=== PATIENT | female | born 1965 | race Caucasian/White ===

== ENCOUNTER 2019-01-05 20:30 | Inpatient (IN) | payer OTHER ==
[~2019-01-05] VITALS: Ht 172.7 cm; Wt 85.2 kg
[2019-01-05 20:57] LABS: BASO # 0.1 10^3/uL (0.0-0.2); BASO % 0.8 % (0.0-1.0); EOS # 0.4 10^3/uL (0.0-0.50); EOS % 4.8 % (0.0-3.0); HEMOGLOBIN 14.3 g/dl (12.0-15.5); LYMPH # 2.2 10^3/uL (1.5-4.5); LYMPH % 29.7 % (24.0-44.0); MEAN CORPUSCULAR HEMOGLOBIN 32.1 pg (27.0-33.0); MEAN CORPUSCULAR HGB CONC 33.3 g/dl (32.0-36.5); MEAN CORPUSCULAR VOLUME 96.4 fl (80.0-96.0); MONO # 0.6 10^3/uL (0.0-0.8); MONO % 8.6 % (0.0-5.0); NEUTROPHILS # 4.2 10^3/uL (1.8-7.7); NEUTROPHILS % 55.8 % (36.0-66.0); PLATELET COUNT, AUTOMATED 235 10^3/uL (150-450); RED BLOOD COUNT 4.46 10^6/uL (4.00-5.40); WHITE BLOOD COUNT 7.5 10^3/uL (4.0-10.0)
[2019-01-05] MEDS ORDERED: ATOR1TAB19 PO (21:08)
[2019-01-05] MEDS ORDERED: SYNT112T2 PO (21:08)
[2019-01-05] MEDS ORDERED: DIAZ5TAB PO (21:08)
[2019-01-05] MEDS ORDERED: METO25TA4 PO (21:08)
[2019-01-05] MEDS ORDERED: LISI-542 PO (21:08)
[2019-01-05] MEDS ORDERED: CARB25TA9 PO (21:08)
[2019-01-05] MEDS ORDERED: DIAZ2TAB PO (21:08)
[2019-01-05] MEDS ORDERED: BUPR150T3 PO (21:08)
[2019-01-05] MEDS ORDERED: D-101000 PO (21:09)
[2019-01-05] MEDS ORDERED: D31000CA4 PO (21:09)
[2019-01-05] MEDS ORDERED: EQL50TAB4 PO (21:09)
[2019-01-05] MEDS ORDERED: CHARCOAL ACTIVATED LIQUID 25 GM/120 ML BTL PO ONE (21:15)
[2019-01-05 21:30] LABS: ACETAMINOPHEN LEVEL < 2.0 UG/ML (10.0-30.0); ALBUMIN 4.2 GM/DL (3.2-5.2); ALT/SGPT 12 U/L (12-78); BILIRUBIN,DIRECT < 0.1 MG/DL (0.0-0.2); BILIRUBIN,TOTAL 0.3 MG/DL (0.2-1.0); BLOOD UREA NITROGEN 10 MG/DL (7-18); CARBON DIOXIDE LEVEL 28 MEQ/L (21-32); CHLORIDE LEVEL 103 MEQ/L (98-107); CPK CREATINE PHOSPHOKINASE 340 U/L (26-192); CREATININE FOR GFR 0.98 MG/DL (0.55-1.30); ETHYL ALCOHOL (ETHANOL) 0.039 % (0.000-0.010); GLOMERULAR FILTRATION RATE > 60.0 (>51); GLUCOSE, FASTING 322 MG/DL (70-100); POTASSIUM SERUM 4.1 MEQ/L (3.5-5.1); SALICYLATE LEVEL < 1.7 MG/DL (5.0-30.0); SODIUM LEVEL 140 MEQ/L (136-145); THYROID STIMULATING HORMONE 0.433 uIU/ML (0.358-3.740); TOTAL PROTEIN 7.4 GM/DL (6.4-8.2)
[2019-01-05 22:58] LABS: AMPHETAMINES LEVEL URINE NEGATIVE (NEGATIVE); BARBITURATES URINE NEGATIVE (NEGATIVE); BENZODIAZEPINES URINE POSITIVE (NEGATIVE); CANNABINOIDS URINE NEGATIVE (NEGATIVE); COCAINE METABOLITE URINE NEGATIVE (NEGATIVE); METHADONE URINE NEGATIVE (NEGATIVE); OPIATES URINE NEGATIVE (NEGATIVE); PHENCYCLIDINE URINE NEGATIVE (NEGATIVE)
[2019-01-06] MEDS ORDERED: HumaLOG INSULIN (NovoLOG) PER UNIT SC STA (02:03)
[2019-01-06] MEDS ORDERED: NICOTINE 21MG/24HR 1 EA TRANSDERMAL TD SCH (09:00)
[2019-01-06] MEDS ORDERED: METOPROLOL TART 50 MG TAB PO ONE (10:30)
[2019-01-06] MEDS ORDERED: LISINOPRIL 5 MG TAB PO ONE (10:30)
[2019-01-06] MEDS ORDERED: buPROPion **XL** TABLET 150MG (WELLBUTRIN XL) PO ONE (10:30)
[2019-01-06] MEDS ORDERED: LEVOTHYROXINE 112MCG TABLET (0.112MG) PO ONE (10:30)
[2019-01-06] MEDS ORDERED: NS 1,000 ML IV ONE (10:45)
[2019-01-06] MEDS ORDERED: METOPROLOL TART 25 MG TABLET PO ONE (11:00)
[2019-01-06] MEDS ORDERED: BASA100I SC (11:16)
[2019-01-06] MEDS ORDERED: LEVEMIR (INSULIN DETEMIR) 1 UNITS/0.01ML SC ONE (11:45)
[2019-01-06] MEDS: VITAMIN D 1,000 INTERNATIONAL UNITS TABLET PO SCH ×2 (12:06→12:07)
[2019-01-06] MEDS ORDERED: ACET500T15 PO (12:17)
[2019-01-06] MEDS ORDERED: ADME100I SC (12:17)
[2019-01-06] MEDS ORDERED: ACETAMINOPHEN TAB 650MG DOSE (2X325MG) PO PRN (13:30)
[2019-01-06] MEDS ORDERED: MAALOX 30 ML SUSP *UDC PO PRN (13:30)
[2019-01-06] MEDS ORDERED: MOM 30ML SUSPENSION UDC PO PRN (13:30)
--- NOTE | 2019-01-06 17:00 | ECGEPIP ---
Stationary ECG Study [facility] - ED Test Date: 2019-01-05 Pat Name: JHON FRENCH Department: Room: - Gender: F Quality Process Engineer: KHRIS : 1965 Requested By: MARIANO GRAY Order Number: [id number] Reading MD: Berto Fishman Measurements Intervals [place] Rate: 98 P: 48 VT: 144 QRS: 12 QRSD: 92 T: 50 QT: 368 QTc: 471 Interpretive Statements SINUS RHYTHM PROBABLE INFERIOR MYOCARDIAL INFARCTION, PROBABLY OLD NONSPECIFIC ST T WAVE CHANGES DELAYED R WAVE PROGRESSION NO OLD ECG FOR COMPARISON Electronically Signed On 01-06-2019 17:00:03 EDT by Berto Fishman
[2019-01-06] MEDS ORDERED: DEXTROSE 50% 50 ML SYRINGE IV PRN (17:45)
[2019-01-06] MEDS ORDERED: diazePAM 10 MG TAB PO PRN (17:45)
[2019-01-06] MEDS ORDERED: GLUCOSE 4 GM CHEW TABLET PO PRN (17:45)
[2019-01-06] MEDS ORDERED: GLUCAGON FOR INJ 1 MG VIAL (J1610) SC PRN (17:45)
[2019-01-06] MEDS ORDERED: PILL CRUSHER/CUTTER 1 EACH XX PRN (18:00)
[2019-01-06] MEDS: HumaLOG INSULIN (NovoLOG) PER UNIT SC SCH (18:08)
--- NOTE | 2019-01-06 19:39 | ECGEPIP ---
Stationary ECG Study [facility] - ED Test Date: 2019-01-06 Pat Name: JHON FRENCH Department: Room: - Gender: F Corporate Claims Examiner: william : 1965 Requested By: Berto Fishman Order Number: [id number] Reading MD: Berto Fishman Measurements Intervals [place] Rate: 120 P: 64 [place]: 156 QRS: 14 QRSD: 86 T: 53 QT: 317 QTc: 449 Interpretive Statements SINUS TACHYCARDIA POSSIBLE INFERIOR MYOCARDIAL INFARCTION, PROBABLY OLD ABNORMAL RHYTHM ECG DELAYED R WAVE PROGRESSION CW 01/05/[address] T WAVE CHANGES Electronically Signed On 01-06-2019 19:39:10 EDT by Berto Fishman
[2019-01-06] MEDS: traZODone 50 MG TAB PO PRN (20:38)
[2019-01-07] MEDS: HumaLOG INSULIN (NovoLOG) PER UNIT SC SCH ×3 (06:42→17:31)
[2019-01-07 09:15] VITALS: BP 112/60
[2019-01-07] MEDS ORDERED: hydrOXYzine 25 MG TAB PO PRN (12:15)
--- NOTE | 2019-01-07 12:23 | MHHPEPDOC ---
General Date Of Admission: Jan 07, 2019 Legal Status: 9.39 Chief Complaint "I am a basket case at night" History of Present Illness HISTORY OF THE PRESENT ILLNESS: Patient is a 53 -year-old , female, who presents after making suicidal statement of not wanting to wake up and taking 10 mg diazepam with alcohol per ED report. Reports daughter called EMS and was brought to the hospital. BAL was 0.039 on admission. She was stabilized in the ED. Says she took "Zzzquil", a beer and 2 mg diazepam 2 evenings ago because she could not sleep. She denies taking more than 2 tablets of diazepam that night and did not have any recent suicidal thoughts, including on this admission. She reports she drinks a couple beers a night. She reports several surgeries with lengthy hospital stays. 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 Says she felt immobilized in bed and at one point spilled water on herself from the francis brought to her and that she spent hours in bed wet and unable to reach the call button. Endorses that she recently has had arguments with her of 31 years, since she wakes up in the middle of the night at 4 am because while in the hospital would wake up at this time and he would not be by her side. Says when she wakes up she does not have anxiety or nightmares associated. Reports being in hospitals triggers her and makes her "a bit anxious" and "mad". Says she suppressed intrusive memories and does not have significant alterations in her mood. Reports some anger issues due to feeling helpless at times, but is not usually depressed, hopeless. Denies suicidal or homicidal ideations. Denies AVH/michelle. Denies side effects of current medications. Told her wellbutrin XL 150 mg Po daily may make her agitated/angry and that propranolol can replace metoprolol to help with impulsivity considering her past surgery, but she says she wants to remain on metoprolol since she has history of tachycardia unrelated to anxiety spells and wants to stay on current regime. Sees a therapist 2x weekly, see past psychiatric history. She does not wish for us to call her daughter at this time, but states she may be agreeable later. Psychiatric Review of Systems Depression (2 or more weeks): denies Michelle (4 or more days of): denies Psychosis: denies PTSD: history of trauma (several inpatient admissions for brain surgery.), nightmares and flashbacks (says smells and sights of the hospital remind her of being in the hospital, says makes her mad.), avoidance of triggers (avoids hospitals, makes her feels anxious to hear "beeping sounds of machines") Anxiety: gen/non-specific anxiety, stressor related anxiety Anxiety/ 6 months or more of: difficulty concentrating Past Psychiatric History Previous Psychiatric Diagnosis: Reports PTSD dx by clinical psychologist "Margo Weber", Previous Psychiatric Admissions: [facility] in [place] for 3 days, 25 years ago she reports inpatient admission Suicide Attempts: Denies Psychiatric Follow-up: Saw clinical psychologist, "Margo Weber, [facility] for 4-6 weeks after last surgery", Sees "Alee Baptiste" counselor in [place] 2x weekly Psychiatric medications: paroxetine (for greater than 1 year, says sexual side effects), Wellbutrin XL 150 PO daily (has been on for a year, never missed a dose) Past Medical History Medical Problems epidermoid cyst removal 10 years ago, repeat surgery [address], had 3 surgeries (spend weeks each time in the hospital), hypothyroidism, hyperlipidemia, DM1 adult onset, vitiligo Head Injury: Yes Seizures: No (Denies she is on any medications related to her surgery.) Hospitalizations: Yes Surgeries: Yes (see above) Family Medical/Psychiatric HX Medical Problems Father, kidney "tumor" and "heart disease". Mother in 2001 of MA reportedly, thyroid disease. Both maternal and paternal grandparents thyroid dysfunction. Psychiatric Disorders: No Addiction: No Suicide Attemps/Completions: No Addiction History nicotine (Quit in 2006), alcohol (Reports at least 1-4 beers a day.) Social History Childhood: "I had a great childhood". Parents remained until she was 29 years old. Grew up in [place], [place]. Abuse/Trauma: Reports long hospital stays, waking up at night without there. Denies any clear trauma or abuse. Current Living Situation: Lives with of 31 years in [place], [place] in a house. Education: highschool. Employment: Currently unemployed. 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 Social Support: No benefits, unemployed since 2000 Legal: Denies Marital: Mental Status Examination General Appearance: well groomed, appears stated age, hospital scubs/clothing Build: overweight Demeanor: average Eye Contact: average Activity: average Behavior: cooperative Speech: clear, normal volume, reg/rate,rhythm,volume Mood: euthymic Mood "good I guess" Affect: full (Does smile, ), appropriate, congruent Thought Process: circumstantial Thought Content (Delusions): none reported Thought Content (Other): preoccupied (On leaving, does not like hospitals.) Thought Content (Aggressive): none reported Perception (Hallucinations): none reported Perception (Other): none reported Cognition (Impairment of): memory (Says long-term memory poor) Cognition(Intelligence Est.): average Oriented: Awake, Alert, Oriented times three Insight: good Judgment: Good Psychosis: Denies Diagnoses 1. Unspecified trauma and stressor-related disorder R/O PTSD, MDD, PRISCILLA Assessment Patient is a 53 year old female with reported past psychiatric history of PTSD who comes into [facility] ED after daughter called EMS due to possible overdose of diazepam with benadryl and alcohol (BAL 0.039) and suicidal ideation. Patient adamant she has never been suicidal and no recent inpatient admissions. No past suicide attempts reported. Says she is stable on her home medications including wellbutrin xl 150 mg PO and wants to start PRN trazodone 50 mg PO QHS for sleep, hydroxyzine 25 mg PO Q4H for anxiety, and wants to continue on the medications. She was also started on medications for her DM 1 adult onset, hypothyroidism, HTN, carbido/levadopa, statin for HLD. Currently denies SI/HI/AVH/michelle/acute PTSD symptoms. Daughter should be contacted for collateral when patient amenable. Also keep on PRN diazepam for CIWA above 13 for potential withdrawals. Problem List Problems: (1) Anxiety associated with depression Initial Treatment Plan 1. Patient was admitted on a [9.39] status. 2. Complete history was obtained. 3. With patients permission, family will be contacted and database will be expanded. 4. Patients medication regimen will be reviewed and changed accordingly. 5. Patient will be provided with protected environment. 6. Patient will be treated with individual, group, and milieu therapies. 7. Patient will receive supportive psych-education. 8. Discharge planning will commence immediately. 9. Outpatient follow-up treatment will be strongly recommended. 10. The initial treatment plan will focus initially on: * Depression, anxiety, possible PTSD, CIWA for withdrawals * Risk for suicide. * Substance abuse. ESTIMATED LENGTH OF STAY: 5-7 DAYS. TIME SPENT COUNSELING AND COORDINATING INITIAL CARE: 60 minutes. Vital Signs Vital Signs Date Time Temp Pulse Resp B/P (MAP) Pulse Ox O2 Delivery O2 Flow Rate FiO2 01/07/19 09:15 80 112/60 (77) 01/06/19 17:11 97.2 17 99 01/06/19 11:50 Room Air 01/06/19 01:45 2.0 Laboratory Data 24H Labs Laboratory Tests 2 01/06/19 18:01: Bedside Glucose (Misc Panel) 321H Medications Scheduled (Basaglar Kwikpen) 100 Unit/Ml Inj, 30 UNIT SC DAILY, (Reported) (Admelog) 100 Unit/Ml Inj, 1 DOSE SC AC, (Reported) PER SLIDING SCALE Atorvastatin Calcium (Atorvastatin Calcium) 10 Mg Tab, 10 MG PO QHS, (Reported) Bupropion Hcl (Bupropion HCl Xl) 150 Mg Tab, 150 MG PO DAILY, (Reported) Carbidopa/Levodopa (Carbidopa/Levodopa 25-100 mg) 1 Tab Tab, 2 TAB PO QHS, (Reported) Cholecalciferol (D3) 1,000 Unit Cap, 1,000 UNITS PO DAILY, (Reported) Levothyroxine Sodium (Synthroid) 112 Mcg Tab, 112 MCG PO DAILY, (Reported) Lisinopril (Lisinopril) 5 Mg Tab, 5 MG PO DAILY, (Reported) Metoprolol Tartrate (Metoprolol Tartrate) 25 Mg Tab, 25 MG PO BID, (Reported) Zinc (Eql Natural Zinc) 50 Mg Tab, 50 MG PO DAILY, (Reported) Scheduled PRN Acetaminophen (Acetaminophen) 500 Mg Tab, 500 MG PO Q6H PRN for PAIN, (Reported) Diazepam (Diazepam) 5 Mg Tab, 5 MG PO QHS PRN for ANXIETY, (Reported) Allergies Coded Allergies: No Known Allergies (Unverified , 01/05/19) MARISA JACOBS PGY-1 Jan 07, 2019 11:48
[2019-01-07] MEDS ORDERED: diazePAM 10 MG TAB PO PRN (12:30)
[2019-01-07] MEDS: FOLIC ACID 1 MG TAB PO SCH (14:03)
[2019-01-07] MEDS: THIAMINE 100 MG TAB PO SCH (14:04)
[2019-01-07] MEDS: LISINOPRIL 5 MG TAB PO SCH (14:05)
[2019-01-07] MEDS: VITAMIN D 1,000 INTERNATIONAL UNITS TABLET PO SCH (14:05)
[2019-01-07] MEDS: METOPROLOL TART 25 MG TABLET PO SCH ×2 (14:05→20:12)
[2019-01-07] MEDS: buPROPion **XL** TABLET 150MG (WELLBUTRIN XL) PO SCH (14:05)
[2019-01-07] MEDS ORDERED: LORazepam 2 MG TAB PO PRN (15:30)
[2019-01-07] MEDS: MULTIVITAMINS/MINERALS THERAP 1 TAB PO SCH (16:05)
[2019-01-07] MEDS: LEVOTHYROXINE 112MCG TABLET (0.112MG) PO SCH (16:05)
[2019-01-07 16:17] VITALS: BP 123/73
[2019-01-07 18:39] VITALS: BP 123/73
[2019-01-07] MEDS: traZODone 50 MG TAB PO PRN (20:11)
[2019-01-07] MEDS: ATORVASTATIN 10 MG TAB PO SCH (20:12)
[2019-01-07] MEDS: SINEMET 25-100 MG TAB PO SCH (20:12)
[2019-01-07] MEDS ORDERED: traZODone 50 MG TAB PO SCH (21:00)
[2019-01-07] MEDS ORDERED: THIAMINE 100 MG TAB PO SCH (21:00)
[2019-01-07 23:30] VITALS: BP 134/86
[2019-01-08 06:32] VITALS: BP 133/63
[2019-01-08] MEDS: LEVOTHYROXINE 112MCG TABLET (0.112MG) PO SCH (06:32)
[2019-01-08] MEDS: HumaLOG INSULIN (NovoLOG) PER UNIT SC SCH ×4 (06:45→20:25)
[2019-01-08 07:44] LABS: CPK CREATINE PHOSPHOKINASE 190 U/L (26-192); MB/CK RELATIVE INDEX 1.74 (< OR =4); TROPONIN I < 0.02 NG/ML (< 0.10)
[2019-01-08] MEDS: THIAMINE 100 MG TAB PO SCH (08:52)
[2019-01-08] MEDS: LISINOPRIL 5 MG TAB PO SCH (08:52)
[2019-01-08] MEDS: VITAMIN D 1,000 INTERNATIONAL UNITS TABLET PO SCH (08:52)
[2019-01-08] MEDS: LEVEMIR (INSULIN DETEMIR) 1 UNITS/0.01ML SC SCH (08:52)
[2019-01-08] MEDS: FOLIC ACID 1 MG TAB PO SCH (08:52)
[2019-01-08] MEDS: buPROPion **XL** TABLET 150MG (WELLBUTRIN XL) PO SCH (08:52)
[2019-01-08] MEDS: METOPROLOL TART 25 MG TABLET PO SCH ×2 (08:53→20:06)
[2019-01-08] MEDS: MULTIVITAMINS/MINERALS THERAP 1 TAB PO SCH (08:53)
[2019-01-08] MEDS ORDERED: FOLIC ACID 1 MG TAB PO SCH (09:00)
--- NOTE | 2019-01-08 10:52 | MHIPNPDOC ---
[facility] Progress Note Progress Note DATE OF SERVICE: 01/08/19 HISTORY: See HPI. Interval History: Patient seen eating in the common social room. Denies any concerning physical symptoms, including but not limited to high anxiety, diaphoresis, shakiness, N,V,H, neurological symptoms, chest pain. Says she wants to leave tomorrow, explained we are the weekend coverage team. She is smiling and laughs at points during our conversation, reports mood is "anxious to leave". Says she looks forward to upcoming trips with . has been attending groups. Reports normal appetite and adequate sleep. VITAL SIGNS: See below. NEW TEST RESULTS: see below, ekg read showed inferior infarct, "probably old", ordered cardiac enzymes. CURRENT MEDICATIONS: See below. MENTAL STATUS EXAMINATION: General Appearance: well groomed, appears stated age, hospital scrubs/clothing Build: overweight Demeanor: average Eye Contact: average Activity: average Behavior: cooperative, pleasant Speech: clear, normal volume, reg/rate,rhythm,volume Mood "anxious to leave" Affect: elevated, full range,(Does smile), appropriate, congruent Thought Process: linear, logical Thought Content (Delusions): none reported Thought Content (Other): preoccupied (On leaving, does not like hospitals.) Thought Content (Aggressive): none reported Perception (Hallucinations): none reported Perception (Other): none reported Cognition (Impairment of): memory (Says long-term memory poor) Cognition(Intelligence Est.): average Oriented: Awake, Alert, Oriented times three Insight: good Judgment: Good Psychosis: Denies DIAGNOSES: 1. Unspecified trauma and stressor-related disorder R/O PTSD, MDD, PRISCILLA ASSESSMENT: Patient is euthymic to elevated mood, tolerates home medications without side effects. Patient feels safe to leave, and asks if she can go Wednesday, told her we are the weekend coverage. MANAGEMENT PLAN: Educated regarding alcohol and diazepam use risk, especially when combining sedatives risk for respiratory depression and . Continued on medications, denies side effects. EKG read shows "probably old infarct" so ordered cardiac enzymes which should be followed up. TIME SPENT: 10 minutes. Vital Signs Vital Signs Date Time Temp Pulse Resp B/P (MAP) Pulse Ox O2 Delivery O2 Flow Rate FiO2 01/08/19 08:53 63 133/63 01/08/19 06:32 98.3 12 01/06/19 17:11 99 01/06/19 11:50 Room Air 01/06/19 01:45 2.0 Laboratory Data 24H Labs Laboratory Tests 2 01/07/19 12:12: Bedside Glucose (Misc Panel) 276H 01/07/19 17:29: Bedside Glucose (Misc Panel) 250H 01/07/19 20:05: Bedside Glucose (Misc Panel) 353H 01/08/19 06:39: Bedside Glucose (Misc Panel) 263H 01/08/19 06:58: Total Creatine Kinase 190, Creatine Kinase MB 3.0, Creatine Kinase MB Relative Index 1.74, Troponin I < 0.02 Current Medications Current Medications Acetaminophen (Tylenol Tab) 650 mg Q6HP PRN PO HEADACHE or DISCOMFORT; Start 01/06/19 at 13:30 Al Hydrox/Mg Hydrox/Simethicone (Mylanta) 30 ml Q4HP PRN PO HEARTBURN/INDIGESTION; Start 01/06/19 at 13:30 Atorvastatin Calcium (Lipitor) 10 mg QHS PO Last administered on 01/07/19at 20:12; Start 01/07/19 at 21:00 Bupropion HCl (Wellbutrin Xl) 150 mg DAILY PO Last administered on 01/08/19at 08:52; Start 01/07/19 at 13:00 Carbidopa/Levodopa (Sinemet 25/100) 2 tab QHS PO Last administered on 01/07/19at 20:12; Start 01/07/19 at 21:00 Dextrose (Dextrose 50%) 25 ml ASDIRECTED PRN IV SEE LABEL COMMENTS; Start 01/06/19 at 17:45; Stop 01/07/19 at 12:19; Status DC Diazepam (Valium) 5 mg QHSP PRN PO ANXIETY; Start 01/06/19 at 17:45; Stop 01/07/19 at 12:19; Status DC Diazepam (Valium) 5 mg QIDP PRN PO ANXIETY; Start 01/07/19 at 12:30; Stop 01/09/19 at 17:45; Status Cancel Folic Acid (Folic Acid) 1 mg DAILY PO Last administered on 01/08/19at 08:52; Start 01/07/19 at 09:00 Folic Acid (Folic Acid) 1 mg DAILY PO ; Start 01/08/19 at 09:00; Stop 01/08/19 at 09:00; Status DC Glucagon (Glucagon) 1 mg ASDIRECTED PRN SC SEE LABEL COMMENTS; Start 01/06/19 at 17:45 Glucose (Glucose) 16 GM ASDIRECTED PRN PO SEE LABEL COMMENTS; Start 01/06/19 at 17:45 Home Med (Med Rec Complete!) ASDIRECTED XX ; Start 01/06/19 at 12:30; Stop 01/06/19 at 12:30; Status DC Hydroxyzine HCl (Atarax) 25 mg Q6HP PRN PO ANXIETY; Start 01/07/19 at 12:15 Insulin Detemir (Levemir Insulin) 30 units DAILY SC Last administered on 01/08/19at 08:52; Start 01/08/19 at 09:00 Insulin Human Lispro (HumaLOG INSULIN) 8 units STAT STAT SC Last administered on 01/06/19at 02:15; Start 01/06/19 at 02:03; Stop 01/06/19 at 02:06; Status DC Insulin Human Lispro (HumaLOG INSULIN) See Protocol Table AC SC Last administered on 01/08/19at 06:45; Start 01/06/19 at 17:30 Levothyroxine Sodium (Synthroid) 112 mcg DAILY@06 PO Last administered on 01/08/19at 06:32; Start 01/07/19 at 13:00 Lisinopril (Prinivil) 5 mg DAILY PO Last administered on 01/08/19at 08:52; Start 01/07/19 at 13:00 Lorazepam (Ativan) 2 mg ASDIRECTED PRN PO SEE PROTOCOL; Start 01/07/19 at 15:30 Magnesium Hydroxide (Milk Of Magnesia) 30 ml DAILYPRN PRN PO CONSTIPATION; Start 01/06/19 at 13:30 Metoprolol Tartrate (Lopressor) 25 mg BID PO Last administered on 01/08/19at 08:53; Start 01/07/19 at 13:00 Multivitamins (Theragram-M) 1 tab DAILY PO Last administered on 01/08/19at 08:53; Start 01/07/19 at 09:00 Nicotine (Nicoderm Cq 21mg) 1 patch DAILY TD ; Start 01/06/19 at 09:00; Stop 01/06/19 at 17:44; Status DC Thiamine HCl (Thiamine HCl) 100 mg BID PO ; Start 01/07/19 at 21:00; Stop 01/07/19 at 21:00; Status DC Thiamine HCl (Thiamine HCl) 100 mg DAILY PO Last administered on 01/08/19at 08:52; Start 01/07/19 at 09:00 Trazodone HCl (Desyrel) 50 mg QHS PO ; Start 01/07/19 at 21:00; Stop 01/07/19 at 21:00; Status DC Trazodone HCl (Desyrel) 50 mg QHSP PRN PO INSOMNIA Last administered on 01/07/19at 20:11; Start 01/06/19 at 13:30 Vitamin D (Vitamin D) 1,000 units DAILY PO Last administered on 01/06/19at 12:07; Start 01/06/19 at 09:00; Stop 01/06/19 at 17:29; Status DC Vitamin D (Vitamin D) 1,000 units DAILY@0800 PO Last administered on 01/08/19at 08:52; Start 01/07/19 at 13:00 Allergies Coded Allergies: No Known Allergies (Unverified , 01/05/19) MARISA JACOBS PGY-1 Jan 08, 2019 10:31
[2019-01-08 12:00] LABS: CPK CREATINE PHOSPHOKINASE 206 U/L (26-192); TROPONIN I < 0.02 NG/ML (< 0.10)
[2019-01-08 18:29] VITALS: BP 146/66
[2019-01-08] MEDS: SINEMET 25-100 MG TAB PO SCH (20:06)
[2019-01-08] MEDS: ATORVASTATIN 10 MG TAB PO SCH (20:06)
[2019-01-08 20:30] VITALS: BP 146/86
[2019-01-08] MEDS ORDERED: HumaLOG INSULIN (NovoLOG) PER UNIT SC SCH (21:00)
[2019-01-09] MEDS: LEVOTHYROXINE 112MCG TABLET (0.112MG) PO SCH (05:59)
[2019-01-09] MEDS: HumaLOG INSULIN (NovoLOG) PER UNIT SC SCH ×4 (06:31→20:12)
[2019-01-09 06:44] VITALS: BP 164/88
[2019-01-09] MEDS: buPROPion **XL** TABLET 150MG (WELLBUTRIN XL) PO SCH (08:09)
[2019-01-09] MEDS: LEVEMIR (INSULIN DETEMIR) 1 UNITS/0.01ML SC SCH (08:09)
[2019-01-09] MEDS: VITAMIN D 1,000 INTERNATIONAL UNITS TABLET PO SCH (08:09)
[2019-01-09] MEDS: THIAMINE 100 MG TAB PO SCH (08:10)
[2019-01-09] MEDS: METOPROLOL TART 25 MG TABLET PO SCH ×2 (08:10→20:10)
[2019-01-09] MEDS: MULTIVITAMINS/MINERALS THERAP 1 TAB PO SCH (08:10)
[2019-01-09] MEDS: LISINOPRIL 5 MG TAB PO SCH (08:10)
[2019-01-09] MEDS: FOLIC ACID 1 MG TAB PO SCH (08:10)
--- NOTE | 2019-01-09 11:44 | MHIPNPDOC ---
[facility] Progress Note Progress Note DATE OF SERVICE: 01/09/19 HISTORY: Patient is a 53 -year-old , female, who presents after making suicidal statement of not wanting to wake up and taking 10 mg diazepam with alc ohol per ED report. Reports daughter called EMS and was brought to the hospital. BAL was 0.039 on admission. She was stabilized in the ED. Says she took "Zzzquil", a beer and 2 mg diazepam 2 evenings ago because she could not sleep. She denies taking more than 2 tablets of diazepam that night and did not have any recent suicidal thoughts, including on this admission. She reports she drinks a couple beers a night. She reports several surgeries with lengthy hospital stays. 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 Says she felt immobilized in bed and at one point spilled water on herself from the francis brought to her and that she spent hours in bed wet and unable to reach the call button. Endorses that she recently has had arguments with her of 31 years, since she wakes up in the middle of the night at 4 am because while in the hospital would wake up at this time and he would not be by her side. Says when she wakes up she does not have anxiety or nightmares associated. Reports being in hospitals triggers her and makes her "a bit anxious" and "mad". Says she suppressed intrusive memories and does not have significant alterations in her mood. Reports some anger issues due to feeling helpless at times, but is not usually depressed, hopeless. Denies suicidal or homicidal ideations. Denies AVH/michelle. Denies side effects of current medications. Told her wellbutrin XL 150 mg Po daily may make her agitated/angry and that propranolol can replace metoprolol to help with impulsivity considering her past surgery, but she says she wants to remain on metoprolol since she has history of tachycardia unrelated to anxiety spells and wants to stay on current regime. Sees a therapist 2x weekly, see past psychiatric history. She does not wish for us to call her daughter at this time, but states she may be agreeable later. VITAL SIGNS: See below. NEW TEST RESULTS: see below CURRENT MEDICATIONS: See below. MENTAL STATUS EXAMINATION: General Appearance: well groomed, appears stated age, own clothing Build: overweight Demeanor: average Eye Contact: average Activity: average, slightly anxious Behavior: cooperative, pleasant Speech: clear, normal volume, reg/rate,rhythm,volume Mood "ok" Affect: elevated, full range,(Does smile), appropriate, congruent Thought Process: linear, logical Thought Content (Delusions): none reported Thought Content (Other): non reported Thought Content (Aggressive): none reported Perception (Hallucinations): none reported Perception (Other): none reported Cognition (Impairment of): memory (Says long-term memory poor) Cognition(Intelligence Est.): average Oriented: Awake, Alert, Oriented times three Insight: good Judgment: Good Psychosis: Denies DIAGNOSES: Unspecified trauma and stressor-related disorder R/O PTSD, MDD, PRISCILLA ASSESSMENT:Pt seen and states that her mood is better and regrets her "mistake" of taking Zzzquil then Valium when Zzzquil didn't work to aid her to sleep. Provided education to pt to never mix or take more of sedating medication as can be very life threatening. Pt states she didn't know and plans to never do again. States she doesn't take valium but had an old prescription so decided to take it, denies it was a SA. States prior to admission things had been going well at home and was looking forward to go on vacation to [employer] in [place]. States is very supportive. States she's being social on the milieu which is beneficial. States she slept well last night with trazodone. Feels she is tolerating her medications and they're beneficial. She is attending groups and finding them helpful. She denies SI/HI, hallucinations, delusions. Pt feels safe here. MANAGEMENT PLAN: continue plan. Medications: Wellbutrin Xl 150 mg DAILY PO Atarax 25 mg Q6HP PRN PO ANXIETY Trazodone 50 mg QHSP PRN PO INSOMNIA TIME SPENT: 30 minutes. Vital Signs Vital Signs Date Time Temp Pulse Resp B/P (MAP) Pulse Ox O2 Delivery O2 Flow Rate FiO2 01/09/19 08:10 82 150/92 01/09/19 06:44 97.3 14 01/06/19 17:11 99 01/06/19 11:50 Room Air 01/06/19 01:45 2.0 Laboratory Data 24H Labs Laboratory Tests 2 01/08/19 11:31: Bedside Glucose (Misc Panel) 378H 01/08/19 17:07: Bedside Glucose (Misc Panel) 264H 01/08/19 20:22: Bedside Glucose (Misc Panel) 319H 01/09/19 06:28: Bedside Glucose (Misc Panel) 212H Current Medications Current Medications Acetaminophen (Tylenol Tab) 650 mg Q6HP PRN PO HEADACHE or DISCOMFORT; Start 01/06/19 at 13:30 Al Hydrox/Mg Hydrox/Simethicone (Mylanta) 30 ml Q4HP PRN PO HEARTBURN/INDIGE STION; Start 01/06/19 at 13:30 Atorvastatin Calcium (Lipitor) 10 mg QHS PO Last administered on 01/08/19at 20:06; Start 01/07/19 at 21:00 Bupropion HCl (Wellbutrin Xl) 150 mg DAILY PO Last administered on 01/09/19at 08:09; Start 01/07/19 at 13:00 Carbidopa/Levodopa (Sinemet 25/100) 2 tab QHS PO Last administered on 01/08/19at 20:06; Start 01/07/19 at 21:00 Dextrose (Dextrose 50%) 25 ml ASDIRECTED PRN IV SEE LABEL COMMENTS; Start 01/06/19 at 17:45; Stop 01/07/19 at 12:19; Status DC Diazepam (Valium) 5 mg QHSP PRN PO ANXIETY; Start 01/06/19 at 17:45; Stop 01/07/19 at 12:19; Status DC Diazepam (Valium) 5 mg QIDP PRN PO ANXIETY; Start 01/07/19 at 12:30; Stop 01/09/19 at 17:45; Status Cancel Folic Acid (Folic Acid) 1 mg DAILY PO Last administered on 01/09/19at 08:10; Start 01/07/19 at 09:00 Folic Acid (Folic Acid) 1 mg DAILY PO ; Start 01/08/19 at 09:00; Stop 01/08/19 at 09:00; Status DC Glucagon (Glucagon) 1 mg ASDIRECTED PRN SC SEE LABEL COMMENTS; Start 01/06/19 at 17:45 Glucose (Glucose) 16 GM ASDIRECTED PRN PO SEE LABEL COMMENTS; Start 01/06/19 at 17:45 Home Med (Med Rec Complete!) ASDIRECTED XX ; Start 01/06/19 at 12:30; Stop 01/06/19 at 12:30; Status DC Hydroxyzine HCl (Atarax) 25 mg Q6HP PRN PO ANXIETY; Start 01/07/19 at 12:15 Insulin Detemir (Levemir Insulin) 30 units DAILY SC Last administered on 01/09/19at 08:09; Start 01/08/19 at 09:00 Insulin Human Lispro (HumaLOG INSULIN) 8 units STAT STAT SC Last administered on 01/06/19at 02:15; Start 01/06/19 at 02:03; Stop 01/06/19 at 02:06; Status DC Insulin Human Lispro (HumaLOG INSULIN) See Protocol Table AC SC Last administered on 01/09/19at 06:31; Start 01/06/19 at 17:30 Insulin Human Lispro (HumaLOG INSULIN) See Protocol Table QHS SC ; Start 01/08/19 at 21:00; Stop 01/08/19 at 21:00; Status DC Insulin Human Lispro (HumaLOG INSULIN) See Protocol Table QHS SC Last administered on 01/08/19at 20:25; Start 01/08/19 at 21:00 Levothyroxine Sodium (Synthroid) 112 mcg DAILY@06 PO Last administered on 01/09/19at 05:59; Start 01/07/19 at 13:00 Lisinopril (Prinivil) 5 mg DAILY PO Last administered on 01/09/19at 08:10; Start 01/07/19 at 13:00 Lorazepam (Ativan) 2 mg ASDIRECTED PRN PO SEE PROTOCOL; Start 01/07/19 at 15:30 Magnesium Hydroxide (Milk Of Magnesia) 30 ml DAILYPRN PRN PO CONSTIPATION; Start 01/06/19 at 13:30 Metoprolol Tartrate (Lopressor) 25 mg BID PO Last administered on 01/09/19at 08:10; Start 01/07/19 at 13:00 Multivitamins (Theragram-M) 1 tab DAILY PO Last administered on 01/09/19at 08:10; Start 01/07/19 at 09:00 Nicotine (Nicoderm Cq 21mg) 1 patch DAILY TD ; Start 01/06/19 at 09:00; Stop 01/06/19 at 17:44; Status DC Thiamine HCl (Thiamine HCl) 100 mg BID PO ; Start 01/07/19 at 21:00; Stop 01/07/19 at 21:00; Status DC Thiamine HCl (Thiamine HCl) 100 mg DAILY PO Last administered on 01/09/19at 08:10; Start 01/07/19 at 09:00 Trazodone HCl (Desyrel) 50 mg QHS PO ; Start 01/07/19 at 21:00; Stop 01/07/19 at 21:00; Status DC Trazodone HCl (Desyrel) 50 mg QHSP PRN PO INSOMNIA Last administered on 01/07/19at 20:11; Start 01/06/19 at 13:30 Vitamin D (Vitamin D) 1,000 units DAILY PO Last administered on 01/06/19at 12:07; Start 01/06/19 at 09:00; Stop 01/06/19 at 17:29; Status DC Vitamin D (Vitamin D) 1,000 units DAILY@0800 PO Last administered on 01/09/19at 08:09; Start 01/07/19 at 13:00 Allergies Coded Allergies: No Known Allergies (Unverified , 01/05/19) ANGEL GROVES DO Jan 09, 2019 11:44
[2019-01-09 11:59] VITALS: BP 150/92
[2019-01-09 18:00] VITALS: BP 152/80
[2019-01-09] MEDS: ATORVASTATIN 10 MG TAB PO SCH (20:09)
[2019-01-09] MEDS: SINEMET 25-100 MG TAB PO SCH (20:11)
[2019-01-10] MEDS: LEVOTHYROXINE 112MCG TABLET (0.112MG) PO SCH (06:01)
[2019-01-10 06:39] VITALS: BP 148/90
[2019-01-10] MEDS: HumaLOG INSULIN (NovoLOG) PER UNIT SC SCH (06:40)
[2019-01-10] MEDS: LEVEMIR (INSULIN DETEMIR) 1 UNITS/0.01ML SC SCH (07:43)
[2019-01-10 07:44] VITALS: BP 140/90
[2019-01-10] MEDS: LISINOPRIL 5 MG TAB PO SCH (07:44)
[2019-01-10] MEDS: VITAMIN D 1,000 INTERNATIONAL UNITS TABLET PO SCH (07:44)
[2019-01-10] MEDS: FOLIC ACID 1 MG TAB PO SCH (07:44)
[2019-01-10] MEDS: METOPROLOL TART 25 MG TABLET PO SCH (07:44)
[2019-01-10] MEDS: MULTIVITAMINS/MINERALS THERAP 1 TAB PO SCH (07:44)
[2019-01-10] MEDS: buPROPion **XL** TABLET 150MG (WELLBUTRIN XL) PO SCH (07:44)
[2019-01-10] MEDS: THIAMINE 100 MG TAB PO SCH (07:44)
--- NOTE | 2019-01-10 08:34 | HPE ---
DATE OF ADMISSION: 01/06/2019 HISTORY OF THE PRESENT ILLNESS: Please refer to psychiatric history and evaluation for further details on this admission. This examination and history is intended for medical issues which may need treatment, follow-up or consultation on this 53-year-old female. ALLERGIES: No known allergies. PRIMARY CARE PROVIDER: Hardeep Aragon at [facility]. SOCIAL HISTORY: She is . ETOH: Once a week she states she will have a couple of beers. Smokes none. Recreational drug use none. PAST MEDICAL HISTORY: Hypercholesterolemia. Hypothyroidism. Hypertension. Vitamin D deficiency. Depression. Vitiligo. History of epidermoid cyst. History of double vision. PAST SURGICAL HISTORY: Epidermoid cyst removal 2000 and two surgeries to follow in 2005 for cerebrospinal fluid (CSF) leak. Repeat surgery for epidermoid cyst 2015. Tubal ligation. HOME MEDICATIONS: - Tylenol 500 mg by mouth every 6 hours as needed for pain - atorvastatin 10 mg by mouth at bedtime - bupropion 150 mg by mouth daily - carbidopa/levodopa 25/100 two tabs by mouth at bedtime - vitamin D 1000 units daily - Valium 5 mg by mouth at bedtime as needed for anxiety - levothyroxine 112 mcg by mouth daily - lisinopril 5 mg by mouth daily - metoprolol tartrate 25 mg by mouth twice a day - Admelog 1 dose subcu before meals - Basaglar KwikPen 30 units subcu every morning - zinc 50 mg by mouth daily LABORATORY STUDIES: White count of 7.5, hemoglobin 14.3, hematocrit 43.0, platelets 235. Electrolytes were normal. BUN was 10, creatinine was 0.9. Nonfasting glucose was 322. CPK was 340, TSH was 0.433. Toxicology on 01/05 in the ER EtOH was 0.039. Urine was positive for benzodiazepines. FAMILY HISTORY: Father had hypertension. Mother had coronary artery disease (CAD). Father had chronic obstructive pulmonary disease (COPD) and carcinoma. Initial EKG showed sinus tachycardia, possibly inferior myocardial infarction, old. Delayed R wave progression. Nonspecific STT wave changes. REVIEW OF SYSTEMS: No complaint of headache, no blurred vision. She has chronic double vision. No fever, no chills. No tinnitus. No hoarseness. No difficulty swallowing. No lightheadedness or vertigo. CARDIOVASCULAR: No complaints of chest pain, shortness of breath, palpitations or edema. BREASTS: No masses. RESPIRATORY: No chronic cough. No sputum production. No hemoptysis. No orthopnea. No wheeze. GASTROINTESTINAL (GI): No complaints of nausea, vomiting or diarrhea. No hematochezia. No melena. No complaints of abdominal pain. GENITOURINARY (): No hematuria, dysuria or frequency. MUSCULOSKELETAL: No joint pain, redness or swelling. ENDOCRINE: History of hypothyroidism. History of insulin dependent diabetes. HEMATOLOGIC: No history of anemia. NEUROLOGIC: States no history of seizures. History of epidermoid brain cyst removed times two. No paralysis. PSYCHOLOGIC: See psychiatric HPI. PHYSICAL EXAMINATION: 53-year-old cooperative female in no acute distress. Height 68 inches, weight 85.1 kg, BMI 28.6. Blood pressure 123/73, pulse 90, respirations 16, temperature 97.8, oxygen saturation 99% on room air. The patient is alert and oriented times three. Pupils equal and react to light. EOM's are intact. Cornea and sclerae are clear. Conjunctivae are normal. No facial asymmetry. Pharynx, tongue and gums are pink and moist. Tongue is midline. Neck is supple without lymphadenopathy. No thyromegaly. No goiter. Carotids 2+ without bruit. Chest clear to auscultation without wheeze or retraction. Heart is regular. Abdomen benign. Bowel sounds are positive. /rectal not done. Extremities show full [id number]. No cyanosis, clubbing or edema. Peripheral pulses are equal and palpable bilaterally. Skin is warm and dry. IMPRESSION/PLAN: 1. Psychiatric plan per psychiatry. 2. History of insulin dependent diabetes. Will continue long acting insulin. She will start in the morning. Continue sliding scale coverage. 3. Hypothyroidism Continue levothyroxine. TSH therapeutic. 4. Hypertension. Continue metoprolol and lisinopril. 5. Hypercholesterolemia. Continue atorvastatin.
[2019-01-10] MEDS ORDERED: BUPR150T3 PO (08:52)
[2019-01-10] MEDS ORDERED: TRAZO50TA PO (08:52)
[2019-01-10] MEDS ORDERED: HYDR-3363 PO (08:52)
--- NOTE | 2019-01-10 08:52 | MHDSPDOC ---
[facility] Discharge Summary Discharge Summary DATE OF ADMISSION: Jan 06, 2019 at 1:26 pm DATE OF DISCHARGE: January 10, 2019 DISCHARGE DIAGNOSES: Unspecified trauma and stressor-related disorder R/O PTSD, MDD, PRISCILLA REASON FOR ADMISSION: Per admit note: "Patient is a 53 -year-old , female, who presents after making suicidal statement of not wanting to wake up and taking 10 mg diazepam with alcohol per ED report. Reports daughter called EMS and was brought to the hospital. BAL was 0.039 on admission. She was stabilized in the ED. Says she took "Zzzquil", a beer and 2 mg diazepam 2 evenings ago because she could not sleep. She denies taking more than 2 tablets of diazepam that night and did not have any recent suicidal thoughts, including on this admission. She reports she drinks a couple beers a night. She reports several surgeries with lengthy hospital stays. 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 Says she felt immobilized in bed and at one point spilled water on herself from the francis brought to her and that she spent hours in bed wet and unable to reach the call button. Endorses that she recently has had arguments with her of 31 years, since she wakes up in the middle of the night at 4 am because while in the hospital would wake up at this time and he would not be by her side. Says when she wakes up she does not have anxiety or nightmares associated. Reports being in hospitals triggers her and makes her "a bit anxious" and "mad". Says she suppressed intrusive memories and does not have significant alterations in her mood. Reports some anger issues due to feeling helpless at times, but is not usually depressed, hopeless. Denies suicidal or homicidal ideations. Denies AVH/michelle. Denies side effects of current medications. Told her wellbutrin XL 150 mg Po daily may make her agitated/angry and that propranolol can replace metoprolol to help with impulsivity considering her past surgery, but she says she wants to remain on metoprolol since she has history of tachycardia unrelated to anxiety spells and wants to stay on current regime. Sees a therapist 2x weekly, see past psychiatric history. She does not wish for us to call her daughter at this time, but states she may be agreeable later." CONSULTANTS INVOLVED: none TREATMENT AND PROGRESS ON THE UNIT : Pt was admitted to [facility], seen for psychiatric assessment and restarted on her outpatient wellbutrin xl 150mg daily. She was provided vistaril 25mg q6hr prn anxiety and trazodone 50mg qhs prn insomnia. Pt found her medications beneficial and tolerated them well. She attended groups daily during her stay. Her symptoms improved with treatment. On day of discharge she denied depression, anxiety, insomnia, SI/HI, hallucinations, delusions. She was discharged home after family meeting with her with follow-up at [facility]. She felt safe for discharge. DISCHARGE ASSESSMENT: Pt seen and states that her mood is good and that she's looking forward to going home with her today. Continues to regret her "mistake" of taking Zzzquil then Valium when Zzzquil didn't work to aid her to sleep. Provided education to pt to never mix or take more of sedating medication as can be very life threatening. Pt states she didn't know and plans to never do again. States is very supportive. States she's being social on the milieu which is beneficial. States she slept well last night with trazodone. Feels she is tolerating her medications and they're beneficial. She is attending groups and finding them helpful. She denies depression, anxiety, insomnia, SI/HI, hallucinations, delusions. She is future oriented toward going on vacation with her soon to [place] for fishing. Pt feels safe to be discharged home. MENTAL STATUS EXAMINATION ON DISCHARGE: General Appearance: well groomed, appears stated age, own clothing Build: overweight Demeanor: average Eye Contact: average Activity: average, calm Behavior: cooperative, pleasant Speech: clear, normal volume, reg/rate,rhythm,volume Mood "good" Affect: elevated, full range,(Does smile), appropriate, congruent, euthymic Thought Process: linear, logical Thought Content (Delusions): none reported Thought Content (Other): non reported Thought Content (Aggressive): none reported Perception (Hallucinations): none reported Perception (Other): none reported Cognition (Impairment of): memory (Says long-term memory poor) Cognition(Intelligence Est.): average Oriented: Awake, Alert, Oriented times three Insight: good Judgment: Good Psychosis: Denies MEDICATIONS ON DISCHARGE: Wellbutrin Xl 150 mg DAILY PO Atarax 25 mg Q6HP PRN PO ANXIETY Trazodone 50 mg QHSP PRN PO INSOMNIA PLAN/FOLLOWUP ARRANGEMENTS: d/c home with follow-up at [facility]. The amount of time spent in the coordination of care for this patient was approximately minutes. Vital Signs/I&Os Vital Signs Date Time Temp Pulse Resp B/P (MAP) Pulse Ox O2 Delivery O2 Flow Rate FiO2 01/10/19 07:44 88 140/90 01/10/19 06:39 98.7 12 01/06/19 17:11 99 01/06/19 11:50 Room Air 01/06/19 01:45 2.0 Laboratory Data Labs 24H Laboratory Tests 2 01/09/19 12:03: Bedside Glucose (Misc Panel) 204H 01/09/19 17:07: Bedside Glucose (Misc Panel) 305H 01/09/19 20:07: Bedside Glucose (Misc Panel) 261H 01/10/19 06:34: Bedside Glucose (Misc Panel) 192H Medications Scheduled (Basaglar Kwikpen) 100 Unit/Ml Inj, 30 UNIT SC DAILY, (Reported) (Admelog) 100 Unit/Ml Inj, 1 DOSE SC AC, (Reported) PER SLIDING SCALE Atorvastatin Calcium (Atorvastatin Calcium) 10 Mg Tab, 10 MG PO QHS, (Reported) Bupropion Hcl (Bupropion HCl Xl) 150 Mg Tab, 150 MG PO DAILY, (Reported) Carbidopa/Levodopa (Carbidopa/Levodopa 25-100 mg) 1 Tab Tab, 2 TAB PO QHS, (Reported) Cholecalciferol (D3) 1,000 Unit Cap, 1,000 UNITS PO DAILY, (Reported) Levothyroxine Sodium (Synthroid) 112 Mcg Tab, 112 MCG PO DAILY, (Reported) Lisinopril (Lisinopril) 5 Mg Tab, 5 MG PO DAILY, (Reported) Metoprolol Tartrate (Metoprolol Tartrate) 25 Mg Tab, 25 MG PO BID, (Reported) Zinc (Eql Natural Zinc) 50 Mg Tab, 50 MG PO DAILY, (Reported) Scheduled PRN Acetaminophen (Acetaminophen) 500 Mg Tab, 500 MG PO Q6H PRN for PAIN, (Reported) Diazepam (Diazepam) 5 Mg Tab, 5 MG PO QHS PRN for ANXIETY, (Reported) Allergies Coded Allergies: No Known Allergies (Unverified , 01/05/19) ANGEL GROVES DO Jan 10, 2019 8:52 am
== END 2019-01-10 09:05 | disposition home or self-care (01) | DRG 755 ==
LOC: M ED 20:30 → M ED INP 01-06 13:26 → M PSY 01-06 17:23
PROVIDERS: ADMIT Psychiatry & Neurology Psychiatry; ATTEND Psychiatry & Neurology Psychiatry
DX: F43.9 Reaction to severe stress, unspecified (principal); I10 Essential (primary) hypertension; E78.00 Pure hypercholesterolemia, unspecified; E03.9 Hypothyroidism, unspecified; F32.9 Major depressive disorder, single episode, unspecified; F41.1 Generalized anxiety disorder; E55.9 Vitamin D deficiency, unspecified; L80 Vitiligo; H53.2 Diplopia; E11.9 Type 2 diabetes mellitus without complications; Z79.4 Long term (current) use of insulin; Z79.899 Other long term (current) drug therapy

== ENCOUNTER → 2021-02-19 | Outpatient (CLI) | payer OTHER ==
[~2021-02-19] MED LIST: ACET500T15 PO; ADME100I SC; ATOR1TAB19 PO; BASA100I SC; BUPR150T12 PO; CARB25TA9 PO; D-101000 PO; D31000CA4 PO; DIAZ2TAB PO; DIAZ5TAB PO; HYDR-3363 PO; LISI-898 PO; METO25TA4 PO; SYNT112T2 PO; TRAZ1TAB10 PO; ZINC1TAB2 PO
== END ==
LOC: M LABSMTC 10:14
PROVIDERS: ATTEND Anesthesiology
DX: Z01.812 Encounter for preprocedural laboratory examination (principal); Z20.822 Contact with and (suspected) exposure to COVID-19

== ENCOUNTER → 2022-07-20 | Outpatient (CLI) | payer OTHER ==
[~2022-07-20] MED LIST changes: +ATOR80TA59 PO; +LEVO100T5 PO; -LISI-898 PO; +LISI5TAB11 PO; +LOSA25TA13 PO; +METO50TA7 PO
== END ==
LOC: M LABSMTC 09:37
PROVIDERS: ATTEND Anesthesiology
DX: Z01.812 Encounter for preprocedural laboratory examination (principal); Z20.822 Contact with and (suspected) exposure to COVID-19

== ENCOUNTER 2022-07-22 08:28 | Day surgery (SDC) | payer OTHER ==
[~2022-07-22] VITALS: Ht 177.8 cm; Wt 80.5 kg
[~2022-07-22 08:28] MED LIST changes: +BSS IRRIG/VANCO(10MG)/TOBRA(5MG)/EPINEPH(1:1000-0.5CC)500ML BAG-ORONLY IR ONE; +CEFUROXIME 1MG/0.1ML INTRACAMERAL INJ As Ordered ONE; +CYCLOPENTOLATE 1% OPHTH SOLN 2 ML BTL OD SCH; +LIDOCAINE 1% SDV 5ML VIAL As Ordered ONE; +LIDOCAINE 3.5 % 1ML OPHTH TOPICAL GEL OU ONE; +MIDAZOLAM INJ 2MG/2ML VIAL (J2250 PER 1MG) As Ordered ONE; +OFLOXACIN 0.3 % (OCUFLOX) OPTH SOL 5ML OD ONE; +PHENYLEPHRINE 2.5% OPHTH SOL 2ML OD SCH; +PHENYLEPHRINE HCL 10 % OPHTH. SOL 5ML OD PRN; +TROPICAMIDE 1% OPHTH SOLN 2ML OD SCH; +fentaNYL 100 MCG/2 ML INJECTION As Ordered ONE
[2022-07-22 10:50] VITALS: BP 135/79
== END 2022-07-22 11:08 | disposition home or self-care (01) ==
LOC: M SDC 08:28
PROVIDERS: ATTEND Ophthalmology
DX: H25.11 Age-related nuclear cataract, right eye (principal); I10 Essential (primary) hypertension; E11.9 Type 2 diabetes mellitus without complications
CPT/HCPCS: 66984; J0697; J2250; J3010; V2632

== ENCOUNTER → 2024-02-14 | Outpatient (CLI) | payer OTHER ==
[~2024-02-14] MED LIST changes: -BSS IRRIG/VANCO(10MG)/TOBRA(5MG)/EPINEPH(1:1000-0.5CC)500ML BAG-ORONLY IR ONE; -CEFUROXIME 1MG/0.1ML INTRACAMERAL INJ As Ordered ONE; -CYCLOPENTOLATE 1% OPHTH SOLN 2 ML BTL OD SCH; -LIDOCAINE 1% SDV 5ML VIAL As Ordered ONE; -LIDOCAINE 3.5 % 1ML OPHTH TOPICAL GEL OU ONE; -MIDAZOLAM INJ 2MG/2ML VIAL (J2250 PER 1MG) As Ordered ONE; -OFLOXACIN 0.3 % (OCUFLOX) OPTH SOL 5ML OD ONE; -PHENYLEPHRINE 2.5% OPHTH SOL 2ML OD SCH; -PHENYLEPHRINE HCL 10 % OPHTH. SOL 5ML OD PRN; +PROHANCE 279.3MG/ML 15ML VIAL As Ordered ONE; +PROHANCE 279.3MG/ML 5ML VIAL As Ordered ONE; -TROPICAMIDE 1% OPHTH SOLN 2ML OD SCH; -fentaNYL 100 MCG/2 ML INJECTION As Ordered ONE
== END ==
LOC: M RAD 10:21
PROVIDERS: ATTEND Ophthalmology
DX: R93.0 Abnormal findings on diagnostic imaging of skull and head, not elsewhere classified (principal); H53.452 Other localized visual field defect, left eye; H25.11 Age-related nuclear cataract, right eye
CPT/HCPCS: 70543; A9576

== ENCOUNTER → 2024-04-26 | Outpatient (REF) | payer OTHER ==
[~2024-04-26] MED LIST changes: -PROHANCE 279.3MG/ML 15ML VIAL As Ordered ONE; -PROHANCE 279.3MG/ML 5ML VIAL As Ordered ONE
[2024-04-26 12:58] LABS: BASO # 0.1 10^3/uL (0.0-0.2); BASO % 0.8 % (0.0-1.0); EOS # 0.2 10^3/uL (0.0-0.5); EOS % 2.1 % (0.0-3.0); HEMOGLOBIN 14.5 g/dl (12.0-15.5); LYMPH # 2.4 10^3/uL (1.5-5.0); LYMPH % 25.5 % (24.0-44.0); MEAN CORPUSCULAR HEMOGLOBIN 32.3 pg (27.0-33.0); MONO # 0.8 10^3/uL (0.0-0.8); MONO % 7.9 % (2.0-8.0); NEUTROPHILS % 63.3 % (36.0-66.0); PLATELET COUNT, AUTOMATED 246 10^3/uL (150-450); RED BLOOD COUNT 4.49 10^6/uL (4.00-5.40); WHITE BLOOD COUNT 9.5 10^3/uL (4.0-10.0)
[2024-04-26 13:27] LABS: MAU/CREAT RATIO 10.7 MCG/MG (0.0-30.0)
[2024-04-26 13:32] LABS: ALBUMIN 3.9 G/DL (3.2-5.2); ALKALINE PHOSPHATASE 94 U/L (46-116); ALT/SGPT 34 U/L (7.0-40); AST/SGOT 23 U/L (<34); BLOOD UREA NITROGEN 13 MG/DL (9-23); CALCIUM LEVEL 9.7 MG/DL (8.5-10.1); CARBON DIOXIDE LEVEL 29 MMOL/L (20-31); CHLORIDE LEVEL 103 MMOL/L (98-107); CHOLESTEROL LEVEL 158 MG/DL (<200); CHOLESTEROL RISK RATIO 2.74 (<5); GLOMERULAR FILTRATION RATE > 60.0 (>51); GLUCOSE, FASTING 224 MG/DL (60-100); HDL CHOLESTEROL 57.5 MG/DL (>40); LDL CHOLESTEROL 74.9 MG/DL (<100); NON-HDL-C 100.5 MG/DL; POTASSIUM SERUM 4.5 MMOL/L (3.5-5.1); SODIUM LEVEL 140 MMOL/L (136-145); TOTAL PROTEIN 7.2 G/DL (5.7-8.2); TRIGLYCERIDES LEVEL 128 MG/DL (<150)
[2024-04-26 13:35] LABS: FREE T4 1.33 NG/DL (0.89-1.76); THYROID STIMULATING HORMONE 5.196 uIU/ML (0.55-4.78)
== END ==
LOC: M LABDRWAD 12:18
PROVIDERS: ATTEND Physician Assistant
DX: E10.65 Type 1 diabetes mellitus with hyperglycemia (principal)

== ENCOUNTER 2024-05-08 14:27 | Emergency (ER) | payer OTHER ==
[~2024-05-08] VITALS: Ht 177.8 cm; Wt 87.3 kg
[2024-05-08 15:45] LABS: BASO # 0.1 10^3/uL (0.0-0.2); BASO % 0.7 % (0.0-1.0); EOS # 0.2 10^3/uL (0.0-0.5); EOS % 2.3 % (0.0-3.0); HEMOGLOBIN 13.9 g/dl (12.0-15.5); LYMPH # 2.8 10^3/uL (1.5-5.0); LYMPH % 27.5 % (24.0-44.0); MEAN CORPUSCULAR HEMOGLOBIN 33.1 pg (27.0-33.0); MEAN CORPUSCULAR HGB CONC 33.9 g/dl (32.0-36.5); MEAN CORPUSCULAR VOLUME 97.6 fl (80.0-96.0); MONO # 0.8 10^3/uL (0.0-0.8); MONO % 7.5 % (2.0-8.0); NEUTROPHILS # 6.4 10^3/uL (1.5-8.5); NEUTROPHILS % 61.8 % (36.0-66.0); PLATELET COUNT, AUTOMATED 235 10^3/uL (150-450); WHITE BLOOD COUNT 10.3 10^3/uL (4.0-10.0)
[2024-05-08 16:13] LABS: CK-MB VALUE MASS 4.7 NG/ML (<3.6)
[2024-05-08 16:14] LABS: LIPASE 31 U/L (12-53)
[2024-05-08 16:16] LABS: ALKALINE PHOSPHATASE 93 U/L (46-116); ALT/SGPT 43 U/L (7.0-40); AST/SGOT 41 U/L (<34); BILIRUBIN,DIRECT 0.1 MG/DL (<0.4); BILIRUBIN,TOTAL 0.4 MG/DL (0.3-1.2); BLOOD UREA NITROGEN 15 MG/DL (9-23); CALCIUM LEVEL 9.5 MG/DL (8.5-10.1); CARBON DIOXIDE LEVEL 28 MMOL/L (20-31); CHLORIDE LEVEL 107 MMOL/L (98-107); CREATININE FOR GFR 0.87 MG/DL (0.55-1.30); GLOMERULAR FILTRATION RATE > 60.0 (>51); GLUCOSE, FASTING 159 MG/DL (60-100); POTASSIUM SERUM 3.7 MMOL/L (3.5-5.1); SODIUM LEVEL 138 MMOL/L (136-145); TOTAL PROTEIN 7.1 G/DL (5.7-8.2)
[2024-05-08 16:17] LABS: FREE T4 1.36 NG/DL (0.89-1.76); THYROID STIMULATING HORMONE 1.934 uIU/ML (0.55-4.78)
[2024-05-08 16:20] LABS: CPK CREATINE PHOSPHOKINASE 379 U/L (34-145); MB/CK RELATIVE INDEX 1.24 (< OR =4)
[2024-05-08] MEDS: ASPIRIN 81MG CHEW TABLET PO ONE (16:39)
[2024-05-08] MEDS ORDERED: ISOVUE-370 76% 100ML VIAL As Ordered ONE (16:41)
[2024-05-08 17:04] LABS: CK-MB VALUE MASS 5.4 NG/ML (<3.6)
[2024-05-08 17:08] LABS: MB/CK RELATIVE INDEX 1.56 (< OR =4)
[2024-05-08 18:41] VITALS: BP 190/85
[2024-05-08] MEDS: FAMOTIDINE 20 MG TAB PO ONE (18:41)
[2024-05-08] MEDS: NITROGLYCERIN 2% OINT 1 GM *U/D* PKT TOP ONE (18:41)
[2024-05-08] MEDS: CLOPIDOGREL 300 MG TAB (PLAVIX) PO ONE (18:42)
[2024-05-08] MEDS: HEPARIN SOD (PORCINE) 5000UNITS/ML 1ML VIAL/SYRINGE IV ONE (18:43)
[2024-05-08] MEDS: HEPARIN DRIP 25,000 UNITS in IV 1 EA IV SCH (18:50)
[2024-05-08] MEDS: NS 1,000 ML IV ONE (18:51)
[2024-05-08 18:54] LABS: INR 0.95; PARTIAL THROMBOPLASTIN TIME 24.5 SECONDS (24.8-34.2); PROTHROMBIN TIME 12.4 SECONDS (12.5-14.5)
[2024-05-08 19:50] VITALS: BP 176/84; TEMP 97.7; O2SAT 99
== END 2024-05-08 20:04 | disposition short-term general hospital (02) ==
LOC: M ED 14:27
DX: I21.4 Non-ST elevation (NSTEMI) myocardial infarction (principal); I48.91 Unspecified atrial fibrillation; E11.9 Type 2 diabetes mellitus without complications; I10 Essential (primary) hypertension; E78.5 Hyperlipidemia, unspecified; F41.9 Anxiety disorder, unspecified; F32.A Depression, unspecified; Z86.711 Personal history of pulmonary embolism; Z86.718 Personal history of other venous thrombosis and embolism; Z79.4 Long term (current) use of insulin; Z79.899 Other long term (current) drug therapy
CPT/HCPCS: 71045; 71275; 80047; 80048; 80076; 82550; 82553; 83690; 84439; 84443; 84484; 85025; 85610; 85730; 93005; 93041; 94760; 96374; 99285; Q9967

== ENCOUNTER → 2024-06-13 | Outpatient (REF) | payer OTHER ==
[2024-06-13 14:29] LABS: BLOOD UREA NITROGEN 11 MG/DL (9-23); CALCIUM LEVEL 9.2 MG/DL (8.5-10.1); CARBON DIOXIDE LEVEL 32 MMOL/L (20-31); CHLORIDE LEVEL 107 MMOL/L (98-107); CHOLESTEROL LEVEL 120 MG/DL (<200); CHOLESTEROL RISK RATIO 1.98 (<5); CREATININE FOR GFR 0.82 MG/DL (0.55-1.30); GLOMERULAR FILTRATION RATE > 60.0 (>51); GLUCOSE, FASTING 114 MG/DL (60-100); HDL CHOLESTEROL 60.6 MG/DL (>40); LDL CHOLESTEROL 37.2 MG/DL (<100); NON-HDL-C 59.4 MG/DL; POTASSIUM SERUM 4.4 MMOL/L (3.5-5.1); SODIUM LEVEL 140 MMOL/L (136-145); TRIGLYCERIDES LEVEL 111 MG/DL (<150)
== END ==
LOC: M LABDRWAD 12:53
PROVIDERS: ATTEND Internal Medicine Cardiovascular Disease
DX: E78.5 Hyperlipidemia, unspecified (principal)

== ENCOUNTER → 2024-06-13 | Outpatient (REF) | payer OTHER | LOC: M LABDRWAD 12:55 | PROVIDERS: ATTEND Family Medicine | DX: E03.9 Hypothyroidism, unspecified (principal) ==

== ENCOUNTER → 2024-06-13 | Outpatient (REF) | payer OTHER ==
[2024-06-13 14:35] LABS: THYROID STIMULATING HORMONE 2.851 uIU/ML (0.55-4.78)
[2024-06-13 14:36] LABS: FREE T4 1.5 NG/DL (0.89-1.76)
== END ==
LOC: M LABDRWAD 12:56
PROVIDERS: ATTEND Physician Assistant
DX: E03.9 Hypothyroidism, unspecified (principal)

== ENCOUNTER → 2024-10-23 | Outpatient (REF) | payer OTHER ==
[2024-10-23 13:41] LABS: BLOOD UREA NITROGEN 17 MG/DL (9-23); CALCIUM LEVEL 9.4 MG/DL (8.5-10.1); CARBON DIOXIDE LEVEL 31 MMOL/L (20-31); CHLORIDE LEVEL 103 MMOL/L (98-107); CREATININE FOR GFR 0.82 MG/DL (0.55-1.30); GLOMERULAR FILTRATION RATE > 60.0 (>51); GLUCOSE, FASTING 238 MG/DL (60-100); POTASSIUM SERUM 4.6 MMOL/L (3.5-5.1); SODIUM LEVEL 140 MMOL/L (136-145)
== END ==
LOC: M LABDRWAD 13:02
PROVIDERS: ATTEND Internal Medicine Cardiovascular Disease
DX: I10 Essential (primary) hypertension (principal)

== ENCOUNTER 2024-12-14 07:00 | Day surgery (SDC) | payer OTHER ==
[~2024-12-14] VITALS: Ht 175.3 cm; Wt 87.0 kg
[~2024-12-14 07:00] MED LIST changes: +AMLO1TAB24 PO; +EZET10TA21 PO; +HYDR12CA PO; +LEVO112T2 PO; +LIDOCAINE 2% 100MG/5ML SDV (FOR ANES.) As Ordered ONE; +LOSA100T46 PO; +TRAZ-252 PO; +propofoL 200 MG/20 ML VIAL As Ordered ONE
[2024-12-14] MEDS ORDERED: GLYCOPYRROLATE INJ 0.2 MG/ML 2 ML VIAL As Ordered ONE (08:17)
[2024-12-14 08:55] VITALS: BP 124/57; O2SAT 96
== END 2024-12-14 09:19 | disposition home or self-care (01) ==
LOC: M OPP 07:00
PROVIDERS: ATTEND Internal Medicine Gastroenterology
DX: D12.5 Benign neoplasm of sigmoid colon (principal); Z12.11 Encounter for screening for malignant neoplasm of colon; Z88.8 Allergy status to other drugs, medicaments and biological substances; Z79.4 Long term (current) use of insulin; Z79.890 Hormone replacement therapy; E10.9 Type 1 diabetes mellitus without complications; I25.2 Old myocardial infarction; Z86.73 Personal history of transient ischemic attack (TIA), and cerebral infarction without residual deficits
CPT/HCPCS: 45385; 88305; J1596